=== PATIENT | male | born 1960 | race Caucasian/White ===

== ENCOUNTER → 2017-12-28 | Outpatient (CLI) | payer OTHER ==
--- NOTE | 2017-12-28 20:22 | XCELERA REPORT ---
[address] [id number] Lower Extremity Venous Evaluation Name: CALOS JOSEPH Age: 57 yrs Gender: Male : 1960 Patient Status: Outpatient Patient Location: [facility] Study Date: 12/28/2017 02:30 PM Procedure: Color flow and duplex imaging of the veins of the right lower extremity as well as the left Common Femoral vein. Reason For Study: RLE PAIN/SWELLING Ordering Physician: SELVIN ARCE Performed By: Missael Desai Right Sided Venous Evaluation Normal vessel filling wall to wall, compression and augmentation as well as Colour flow down to the infrageniculate veins. Left Sided Venous Evaluation The left common femoral vein is fully compressible. Spontaneous and phasic flow is present in the left common femoral vein. Interpretation Summary No duplex evidence of DVT or obstruction in the right lower extremity nor in the left Common Femoral vein. : SELVIN ARCE [place]
== END ==
LOC: RAD 12:34
DX: M79.661 Pain in right lower leg (principal)
CPT/HCPCS: 93971